=== PATIENT | female | born 1935 | race Caucasian/White ===

== ENCOUNTER 2020-03-31 11:36 | Emergency (ER) | payer OTHER ==
[~2020-03-31] VITALS: Ht 152.4 cm; Wt 70.3 kg
--- NOTE | 2020-03-31 11:40 | NUR ---
PATIENT TO ER #3 DUST SAMPLER, SAO2, ABP
[2020-03-31 11:53] VITALS: BP_SYST 122
--- NOTE | 2020-03-31 12:05 | NUR ---
PT RECEIVED AND IN ROOM, ON MONITOR, RESP UNLABORED, SKIN WARM AND DRY. CLEAR MENTATION AND SPEECH. C/O RT KNEE PAIN. WAS SENT HERE BY HER PMD. DENIES HEAD INJURY OR LOC.
--- NOTE | 2020-03-31 12:24 | NUR ---
SENT TO X-RAY. PT CALM, ALERT, GOOD SPIRITS
--- NOTE | 2020-03-31 12:41 | NUR ---
BACK FROM X-RAY. PT RESTING EASY,NO DISTRESS
--- NOTE | 2020-03-31 13:40 | NUR ---
CT HIP IN PROGRESS
[2020-03-31] MEDS ORDERED: LEVO75CA2 PO (13:41)
[2020-03-31] MEDS ORDERED: MAGN400T39 PO (13:41)
[2020-03-31] MEDS ORDERED: DOCU-144 PO (13:41)
[2020-03-31] MEDS ORDERED: HYDR-1189 PO (13:41)
[2020-03-31] MEDS ORDERED: NITR0.4T47 SL (13:41)
[2020-03-31] MEDS ORDERED: ALLO300T2 PO (13:41)
[2020-03-31] MEDS ORDERED: CALC500T87 PO (13:41)
[2020-03-31] MEDS ORDERED: INSU100V9 SUBQ (13:41)
[2020-03-31] MEDS ORDERED: MELA3CAP2 PO (13:41)
[2020-03-31] MEDS ORDERED: METO25TA6 PO (13:41)
[2020-03-31] MEDS ORDERED: SSNOVOLOG SUBCUT (13:45)
[2020-03-31] MEDS ORDERED: FOLI0.8T42 PO (13:47)
[2020-03-31] MEDS ORDERED: COU2 PO (13:47)
--- NOTE | 2020-03-31 14:27 | NUR ---
ALERT, CALM, RESP UNLABORED, DENIES CP/SOB
--- NOTE | 2020-03-31 17:21 | NUR ---
Patient given written and verbal discharge instructions and verbalizes understanding. ER MD discussed with patient the results and treatment provided. Patient in stable condition. ID arm band removed. Opportunity for questions provided and answered. Medication side effect fact sheet provided. emt to [facility]
[2020-03-31 17:25] VITALS: BP_SYST 130
== END 2020-03-31 17:25 | disposition home or self-care (01) ==
LOC: SED 11:36
DX: S80.01XA Contusion of right knee, initial encounter (principal); S00.93XA Contusion of unspecified part of head, initial encounter; G31.89 Other specified degenerative diseases of nervous system; Z79.4 Long term (current) use of insulin; Z79.899 Other long term (current) drug therapy; W22.8XXA Striking against or struck by other objects, initial encounter; Y93.89 Activity, other specified; Y92.89 Other specified places as the place of occurrence of the external cause; Y99.8 Other external cause status
CPT/HCPCS: 70450-TC; 73502; 73560-TC; 73700-TC; 82962; 99285

== ENCOUNTER 2023-05-03 23:39 | Emergency (ER) | payer OTHER, MEDICAID ==
[~2023-05-03] VITALS: Ht 149.9 cm; Wt 68.0 kg
[2023-05-03 23:39] VITALS: BP_SYST 118
[~2023-05-03 23:39] MED LIST: ALLO300T2 PO; CALC500T87 PO; DOCU-144 PO; FOLI0.8T42 PO; HYDR-3919 PO; INSU100V9 SUBQ; LEVO75CA2 PO; MAGN400T39 PO; MELA3CAP2 PO; METO25TA6 PO; NITR0.4T47 SL; SSNOVOLOG SUBCUT
--- NOTE | 2023-05-03 23:39 | NUR ---
Triaged and placed patient to ER bed 7 for evaluation. Report given to MONI NEGRON for continuity of care. Bed placed in lowest position with side rails up. Instructed to notify ED staff for any changes in condition or worsening of symptoms while waiting to be seen by a provider. Patient verbalized understanding.
--- NOTE | 2023-05-04 00:10 | NUR ---
ER at bedside examining patient.
[2023-05-04 00:36] LABS: BASOPHILS % (AUTO) 0.7 % (0.0-2.0); EOSINOPHILS # (AUTO) 0.1 K/uL (0.0-0.4); EOSINOPHILS % (AUTO) 2.1 % (0.0-4.0); HEMATOCRIT 28.5 % (36-48); LYMPHOCYTES # (AUTO) 1.1 K/uL (1.0-5.5); LYMPHOCYTES % (AUTO) 17.5 % (20.5-51.5); MEAN CORPUSCULAR HEMOGLOBIN 30 pg (27-31); MEAN CORPUSCULAR HGB CONC 32 % (32-36); MEAN CORPUSCULAR VOLUME 96 fL (79.0-98.0); MONOCYTES # (AUTO) 0.8 K/uL (0.0-1.0); MONOCYTES % (AUTO) 12.4 % (1.7-9.3); NEUTROPHILS # (AUTO) 4.4 K/uL (1.8-7.7); NEUTROPHILS % (AUTO) 67.3 % (40.0-70.0); PLATELET COUNT (AUTO) 155 K/uL (130-430); RED BLOOD CELL COUNT(AUTO) 2.97 MIL/uL (4.2-6.2); RED CELL DISTRIBUTION WIDTH 22.7 % (9.0-15.0); WHITE BLOOD COUNT (AUTO) 6.5 K/uL (4.8-10.8)
--- NOTE | 2023-05-04 00:39 | NUR ---
# 22 gauge angiocath placed to LAC. Use of asceptic technique. Opsite placed over site. Blood return noted. Blood for lab drawn from site. Flushed with 10 cc of normal saline. No evidence of infiltration noted. Patient tolerated well.
--- NOTE | 2023-05-04 00:43 | NUR ---
PT TO CT
[2023-05-04 00:52] LABS: ANION GAP 4 (5-15); CALCIUM 9.3 mg/dL (8.4-11.0); CHLORIDE 98 mmol/L (98-107); CREATININE 1.91 mg/dL (0.55-1.30); GLUCOSE 127 mg/dL (70-99); UREA NITROGEN, BLOOD 61 mg/dL (8-21)
--- NOTE | 2023-05-04 00:53 | NUR ---
PT BACK FROM CT
[2023-05-04 00:56] LABS: ALANINE AMINOTRANSFERASE 14 U/L (12-78); ALBUMIN 3.5 g/dL (3.4-4.8); ASPARTATE AMINOTRANSFERASE 18 U/L (10-37); LIPASE 76 U/L (73-393); TOTAL BILIRUBIN 0.5 mg/dL (0.0-1.0)
[2023-05-04] MEDS ORDERED: MORPHINE 4 MG INJ. 4 MG/ML VIAL IVP ONE ×2 (01:00→02:45)
--- NOTE | 2023-05-04 01:05 | NUR ---
CHANGED PT DIAPER PT SOILED SELF. NAD EVEN UNLABORED RR. VSS
[2023-05-04 02:23] LABS: BILIRUBIN,URINE NEGATIVE (NEGATIVE); CLARITY/URINE CLEAR (CLEAR); COLOR,URINE YELLOW (YELLOW); GLUCOSE,URINE NEGATIVE (NEGATIVE); KETONES,URINE NEGATIVE (NEGATIVE); LEUKOCYTE ESTERASE ,URINE NEGATIVE (NEGATIVE); NITRITE, URINE NEGATIVE (NEGATIVE); PH,URINE 7.5 (5.0-8.0); PROTEIN URINE NEGATIVE (NEGATIVE); UROBILINOGEN,URINE 0.2 (0.2-1.0)
[2023-05-04 02:28] LABS: BLOOD, URINE TRACE (NEGATIVE)
[2023-05-04 02:47] LABS: BACTERIA,URINE RARE /HPF (None Seen); WBC,URINE 0-3 /HPF (0-3)
--- NOTE | 2023-05-04 04:21 | NUR ---
Note padmini in ED - 05/04/23 at 0423 by [email or web address] pt iv site came out, started new site, pt c/o left shoulder pain, will make md aware. back in bed safety rails up, fluids started again, connected to continous monitoring.
--- NOTE | 2023-05-04 04:22 | NUR ---
Note undone in [facility] - 05/04/23 at 042 by [email or web address] # 20 gauge angiocath placed to lfa. Use of asceptic technique. Opsite placed over site. Blood return noted. Blood for lab drawn from site. Flushed with 10 cc of normal saline. No evidence of infiltration noted. Patient tolerated well. Addendum: 05/04/23 at 0422 by [email or web address] Amendment undone in [facility] - 05/04/23 at 042 by [email or web address] NO BLOOD WAS DRAWN FOR LABS
--- NOTE | 2023-05-04 04:45 | NUR ---
pt appears sleeping, eyes closed, vss nad even unlabored breathing connected to continous vs monitor safety rails in place.
--- NOTE | 2023-05-04 06:25 | NUR ---
CHANGED PT DIAPER PT SOILED SELF. NAD EVEN UNLABORED RR. VSS CONNECTED TO CONTINOUS MONITORING. NC REMOVED DUE TO PT REQUEST.
--- NOTE | 2023-05-04 06:57 | NUR ---
pt appears sleeping, eyes closed, vss nad even unlabored breathing connected to continous vs monitor safety rails in place.
[2023-05-04 07:51] VITALS: BP_SYST 104
--- NOTE | 2023-05-04 07:51 | NUR ---
REPORT RECEIVED FROM JAMIL MONTENEGRO FOR CONTINUITY OF CARE. PATIENT IN STABLE CONDITION.
--- NOTE | 2023-05-04 08:37 | NUR ---
Report given to JAMIL Ybarra at [facility] for continuity of care. Patient in stable condition. No distress noted. ETA transport 12 pm
[2023-05-04] MEDS ORDERED: HYDROcodone/ACETAMIN 7.5-325 MG TAB PO ONE (12:00)
--- NOTE | 2023-05-04 13:12 | NUR ---
Patient given written and verbal discharge instructions and verbalizes understanding. ER MD discussed with patient the results and treatment provided. Patient in stable condition. ID arm band removed. IV catheter removed intact and dressing applied, no active bleeding. Patient educated on pain management and to follow up with PMD. Pain Scale . Opportunity for questions provided and answered. Medication side effect fact sheet provided.
== END 2023-05-04 13:12 | disposition home or self-care (01) ==
LOC: SED 23:39
DX: R10.13 Epigastric pain (principal); R19.7 Diarrhea, unspecified; E11.9 Type 2 diabetes mellitus without complications; I10 Essential (primary) hypertension; Z88.1 Allergy status to other antibiotic agents; Z79.899 Other long term (current) drug therapy
CPT/HCPCS: 36415; 71045; 76376; 80053; 81000; 83690; 85025; 93005; 99285; J2270

== ENCOUNTER 2024-01-10 21:38 | Inpatient (IN) | payer MEDICAID, OTHER ==
[~2024-01-10] VITALS: Ht 160 cm; Wt 78.0 kg
[2024-01-10 21:42] VITALS: BP_SYST 104; PULSE 93; RESP 18; TEMP 98; O2SAT 94
[2024-01-10] MEDS: HYDROcodone/ACETAMIN 5-325 MG TAB (NORCO/ VICODIN) PO ONE (22:35)
[2024-01-10] MEDS: NS 500 ML IV ONE (22:48)
[2024-01-10 22:50] LABS: BASOPHILS % (AUTO) 0.7 % (0.0-2.0); EOSINOPHILS # (AUTO) 0.2 K/uL (0.0-0.4); EOSINOPHILS % (AUTO) 3.5 % (0.0-4.0); HEMATOCRIT 26.2 % (36-48); HEMOGLOBIN 8.7 g/dL (12.0-16.0); LYMPHOCYTES # (AUTO) 0.9 K/uL (1.0-5.5); LYMPHOCYTES % (AUTO) 15.7 % (20.5-51.5); MEAN CORPUSCULAR HEMOGLOBIN 34 pg (27-31); MEAN CORPUSCULAR HGB CONC 33 % (32-36); MEAN CORPUSCULAR VOLUME 103 fL (79.0-98.0); MONOCYTES # (AUTO) 0.7 K/uL (0.0-1.0); MONOCYTES % (AUTO) 12.4 % (1.7-9.3); NEUTROPHILS % (AUTO) 67.7 % (40.0-70.0); PLATELET COUNT (AUTO) 135 K/uL (130-430); RED BLOOD CELL COUNT(AUTO) 2.54 MIL/uL (4.2-6.2); RED CELL DISTRIBUTION WIDTH 17.2 % (9.0-15.0); WHITE BLOOD COUNT (AUTO) 5.9 K/uL (4.8-10.8)
[2024-01-10 22:56] LABS: ANION GAP 7 (5-15); CALCIUM 8.9 mg/dL (8.4-11.0); CARBON DIOXIDE 28 mmol/L (23-29); CHLORIDE 101 mmol/L (98-107); CREATININE 3.42 mg/dL (0.55-1.30); GLUCOSE 107 mg/dL (74-106); POTASSIUM 5.4 mmol/L (3.5-5.1); SODIUM SERUM 136 mmol/L (136-145); UREA NITROGEN, BLOOD 60 mg/dL (8-21)
[2024-01-10 22:58] LABS: INR 1.3 (0.8-1.2); PROTHROMBIN TIME 13.3 SECS (9.5-12.5)
[2024-01-10 23:03] LABS: ALANINE AMINOTRANSFERASE 7 U/L (12-78); ALBUMIN 2.8 g/dL (3.4-4.8); ASPARTATE AMINOTRANSFERASE 11 U/L (10-37); BILIRUBIN,DIRECT 0.2 mg/dL (0.0-0.3); LIPASE 20 U/L (16-77); TOTAL BILIRUBIN 0.4 mg/dL (0.0-1.0); TOTAL PROTEIN, SERUM 6.5 g/dL (6.4-8.3)
[2024-01-10] MEDS: ONDANSETRON HCL 4 MG/2 ML VIAL IVP ONE (23:22)
[2024-01-10] MEDS: FAMOTIDINE PF 20 MG/2 ML VIAL IVP ONE (23:27)
[2024-01-11] MEDS: NITROGLYCERIN 0.4 MG TAB.SUBL SL ONE (00:15)
[2024-01-11] MEDS: FUROSEMIDE 40 MG/4 ML VIAL IVP ONE (00:20)
[2024-01-11] MEDS ORDERED: APIX2.5T PO (01:14)
[2024-01-11] MEDS ORDERED: ALLO100T PO (01:14)
[2024-01-11] MEDS ORDERED: BISA10SU77 RC (01:24)
[2024-01-11] MEDS ORDERED: ASCO500T20 PO (01:24)
[2024-01-11] MEDS ORDERED: OSCD500 PO (01:24)
[2024-01-11] MEDS ORDERED: FURO-150 PO (01:24)
[2024-01-11] MEDS ORDERED: FER300L PO (01:24)
[2024-01-11] MEDS ORDERED: WHEA98PO PO (01:24)
[2024-01-11] MEDS ORDERED: INSU100V11 SQ (01:24)
[2024-01-11] MEDS ORDERED: PRO40 PO (01:24)
[2024-01-11] MEDS ORDERED: CYAN100T44 PO (01:24)
[2024-01-11 01:27] LABS: BILIRUBIN,URINE NEGATIVE (NEGATIVE); BLOOD, URINE 3+ (NEGATIVE); CLARITY/URINE CLEAR (CLEAR); COLOR,URINE YELLOW (YELLOW); GLUCOSE,URINE NEGATIVE (NEGATIVE); KETONES,URINE NEGATIVE (NEGATIVE); LEUKOCYTE ESTERASE ,URINE 2+ (NEGATIVE); NITRITE, URINE NEGATIVE (NEGATIVE); PROTEIN URINE TRACE (NEGATIVE); UROBILINOGEN,URINE 0.2 (0.2-1.0)
[2024-01-11 01:39] LABS: BACTERIA,URINE RARE /HPF (None Seen)
[2024-01-11 02:15] VITALS: BP_SYST 107; PULSE 91; RESP 18; TEMP 97.4
[2024-01-11] MEDS: cefTRIAXone 1 GM IVPB PREMIX 50 ML IV ONE ×2 (02:38)
[2024-01-11 08:04] VITALS: BP_SYST 120; PULSE 102; RESP 18; TEMP 96.5; O2SAT 95
[2024-01-11] MEDS ORDERED: NITROGLYCERIN 0.4 MG TAB.SUBL SL PRN (08:15)
[2024-01-11] MEDS ORDERED: INSULIN LISPRO SLIDING SCALE 100 UNITS/ML, 3 ML VIAL (humaLOG) SUBCUT PRN (08:45)
[2024-01-11] MEDS: CYANOCOBALAMIN (VITAMIN B-12) 1,000 MCG TABLET PO SCH (09:00)
[2024-01-11] MEDS: ALLOPURINOL 100 MG TABLET (ZYLOPRIM) PO SCH (09:00)
[2024-01-11] MEDS: CALCIUM 500 MG/TAB PO SCH (09:00)
[2024-01-11] MEDS: METOPROLOL TARTRATE 25 MG TABLET PO SCH (09:00)
[2024-01-11] MEDS: DOCUSATE SODIUM 100 MG CAPSULE PO SCH (09:00)
[2024-01-11] MEDS: APIXABAN 2.5 MG TABLET PO SCH (09:00)
[2024-01-11] MEDS: NEPHROVITE, (FOLIC ACID/VITAMIN B COMP W-C 1 TAB) PO SCH (09:00)
[2024-01-11] MEDS: FUROSEMIDE 20 MG/2 ML VIAL IVP SCH (09:00)
[2024-01-11] MEDS: LEVOTHYROXINE SODIUM 0.075 MG TABLET PO SCH (09:00)
[2024-01-11] MEDS ORDERED: INSULIN GLARGINE 100 UNITS/ML, 10 ML VIAL SQ SCH (09:00)
[2024-01-11] MEDS: PANTOPRAZOLE SODIUM 40 MG TAB PO SCH (09:00)
[2024-01-11] MEDS ORDERED: BISACODYL 10 MG/SUPPOSITORY RC PRN (10:00)
[2024-01-11] MEDS ORDERED: NALOXONE HCL 0.4 MG/ML AMP (NARCAN) IVP PRN (10:00)
[2024-01-11] MEDS ORDERED: INSULIN REGULAR, HUMAN 100 UNITS/ML, 3 ML VIAL (humuLIN R) SUBCUT PRN (10:15)
[2024-01-11] MEDS ORDERED: ONDANSETRON HCL 4 MG/2 ML VIAL IVP PRN (10:15)
[2024-01-11] MEDS: HYDROcodone/ACETAMIN 5-325 MG TAB (NORCO/ VICODIN) PO PRN (11:07)
[2024-01-11] MEDS: SODIUM POLYSTYRENE SULFONATE 15 GM/60 ML UDBTL PO ONE ×2 (11:07→14:17)
[2024-01-11] MEDS: cefTRIAXone 1 GM in D5W 50 ML IV SCH (11:08)
[2024-01-11 11:17] VITALS: BP_SYST 113; PULSE 103; RESP 17; TEMP 98.6; O2SAT 100
[2024-01-11] MEDS ORDERED: AZITHROMYCIN 500 MG in NS 250 ML IV SCH (12:00)
[2024-01-11] MEDS: CALCIUM CARBONATE/VITAMIN D3 1 TAB TABLET PO SCH (15:00)
[2024-01-11] MEDS: AZITHROMYCIN 500 MG in NS 250 ML IV SCH (15:55)
[2024-01-11 16:26] LABS: BASOPHILS % (AUTO) 0.9 % (0.0-2.0); EOSINOPHILS # (AUTO) 0.1 K/uL (0.0-0.4); HEMATOCRIT 27.7 % (36-48); HEMOGLOBIN 8.9 g/dL (12.0-16.0); LYMPHOCYTES # (AUTO) 0.8 K/uL (1.0-5.5); LYMPHOCYTES % (AUTO) 15.4 % (20.5-51.5); MEAN CORPUSCULAR HEMOGLOBIN 34 pg (27-31); MEAN CORPUSCULAR HGB CONC 32 % (32-36); MEAN CORPUSCULAR VOLUME 105 fL (79.0-98.0); MONOCYTES # (AUTO) 0.5 K/uL (0.0-1.0); MONOCYTES % (AUTO) 10.5 % (1.7-9.3); NEUTROPHILS # (AUTO) 3.5 K/uL (1.8-7.7); NEUTROPHILS % (AUTO) 71.2 % (40.0-70.0); PLATELET COUNT (AUTO) 138 K/uL (130-430); RED BLOOD CELL COUNT(AUTO) 2.64 MIL/uL (4.2-6.2); RED CELL DISTRIBUTION WIDTH 17.7 % (9.0-15.0); WHITE BLOOD COUNT (AUTO) 4.9 K/uL (4.8-10.8)
[2024-01-11 16:35] LABS: ANION GAP 7 (5-15); CARBON DIOXIDE 26 mmol/L (23-29); CHLORIDE 102 mmol/L (98-107); CREATININE 3.52 mg/dL (0.55-1.30); GLUCOSE 173 mg/dL (74-106); POTASSIUM 5.4 mmol/L (3.5-5.1); SODIUM SERUM 135 mmol/L (136-145); UREA NITROGEN, BLOOD 64 mg/dL (8-21)
[2024-01-11 16:39] LABS: INR 1.3 (0.8-1.2); PROTHROMBIN TIME 13.5 SECS (9.5-12.5)
[2024-01-11 16:45] LABS: PHOSPHORUS 5.5 mg/dL (2.7-4.5); URIC ACID 7.3 mg/dL (2.4-7.0)
[2024-01-11 16:50] VITALS: BP_SYST 106; PULSE 98; RESP 19; TEMP 98.4; O2SAT 100
[2024-01-11 20:00] VITALS: BP_SYST 140; PULSE 105; RESP 14; TEMP 97; O2SAT 100
[2024-01-11] MEDS ORDERED: FUROSEMIDE 20 MG TABLET PO SCH (21:00)
[2024-01-11] MEDS: FERROUS SULFATE 325 MG TABLET.DR PO SCH (21:20)
[2024-01-11] MEDS: INSULIN GLARGINE 100 UNITS/ML, 10 ML VIAL SQ SCH (21:24)
[2024-01-12] VITALS: BP_SYST 107; PULSE 78; RESP 16; TEMP 97.2; O2SAT 94
[2024-01-12 05:56] LABS: BASOPHILS # (AUTO) 0.1 K/uL (0.0-0.2); BASOPHILS % (AUTO) 1.1 % (0.0-2.0); EOSINOPHILS # (AUTO) 0.1 K/uL (0.0-0.4); EOSINOPHILS % (AUTO) 1.6 % (0.0-4.0); HEMOGLOBIN 8.4 g/dL (12.0-16.0); LYMPHOCYTES # (AUTO) 0.7 K/uL (1.0-5.5); LYMPHOCYTES % (AUTO) 12.7 % (20.5-51.5); MEAN CORPUSCULAR HEMOGLOBIN 34 pg (27-31); MEAN CORPUSCULAR HGB CONC 32 % (32-36); MEAN CORPUSCULAR VOLUME 105 fL (79.0-98.0); MONOCYTES # (AUTO) 0.8 K/uL (0.0-1.0); MONOCYTES % (AUTO) 14.8 % (1.7-9.3); NEUTROPHILS # (AUTO) 3.9 K/uL (1.8-7.7); NEUTROPHILS % (AUTO) 69.8 % (40.0-70.0); PLATELET COUNT (AUTO) 139 K/uL (130-430); RED CELL DISTRIBUTION WIDTH 17.8 % (9.0-15.0); WHITE BLOOD COUNT (AUTO) 5.5 K/uL (4.8-10.8)
[2024-01-12 06:33] LABS: TOTAL IRON BIND. CAPACITY 296 ug/dL (250-450)
[2024-01-12 06:41] LABS: ALANINE AMINOTRANSFERASE 9 U/L (12-78); ALBUMIN 2.6 g/dL (3.4-4.8); ANION GAP 9 (5-15); ASPARTATE AMINOTRANSFERASE 13 U/L (10-37); CALCIUM 8.8 mg/dL (8.4-11.0); CARBON DIOXIDE 25 mmol/L (23-29); CHLORIDE 103 mmol/L (98-107); CHOLESTEROL 91 mg/dL (<200); CREATININE 3.61 mg/dL (0.55-1.30); GLUCOSE 136 mg/dL (74-106); HDL CHOLESTEROL 33 mg/dL (>55); POTASSIUM 5.3 mmol/L (3.5-5.1); SODIUM SERUM 137 mmol/L (136-145); TOTAL BILIRUBIN 0.3 mg/dL (0.0-1.0); TOTAL PROTEIN, SERUM 6.2 g/dL (6.4-8.3); TRIGLYCERIDES 54 mg/dL (30-150); UREA NITROGEN, BLOOD 64 mg/dL (8-21)
[2024-01-12] MEDS: LEVOTHYROXINE SODIUM 0.075 MG TABLET PO SCH (06:42)
[2024-01-12 07:51] VITALS: BP_SYST 112; PULSE 101; RESP 16; TEMP 97; O2SAT 98
[2024-01-12 07:53] LABS: HEMATOCRIT 26.2 % (36-48)
[2024-01-12] MEDS ORDERED: ALLOPURINOL 300 MG TABLET (ZYLOPRIM) PO SCH (09:00)
[2024-01-12] MEDS: ASCORBIC ACID 500 MG TABLET PO SCH (09:00)
[2024-01-12 10:00] VITALS: O2SAT 100
[2024-01-12 11:32] VITALS: BP_SYST 99; PULSE 94; RESP 16; TEMP 97.9; O2SAT 100
[2024-01-12] MEDS ORDERED: FURO40TA5 PO (15:25)
[2024-01-12] MEDS ORDERED: CALC-17 PO (15:25)
[2024-01-12] MEDS ORDERED: CYAN500T9 PO (15:25)
[2024-01-12] MEDS ORDERED: ACET325T53 PO ×2 (15:25)
[2024-01-12] MEDS ORDERED: FERR-69 PO (15:25)
[2024-01-12] MEDS ORDERED: PROP10DR4 OP (15:25)
[2024-01-12] MEDS ORDERED: SODI126M NS (15:25)
[2024-01-12 16:40] VITALS: BP_SYST 110; PULSE 96; RESP 17; TEMP 97.5; O2SAT 96
[2024-01-12 20:30] VITALS: PULSE 90; RESP 18; TEMP 97.5; O2SAT 100
[2024-01-12] MEDS: AZITHROMYCIN 500 MG in NS 250 ML IV SCH (22:39)
[2024-01-13 04:19] LABS: BASOPHILS % (AUTO) 0.9 % (0.0-2.0); EOSINOPHILS # (AUTO) 0.1 K/uL (0.0-0.4); HEMATOCRIT 25.1 % (36-48); HEMOGLOBIN 8.1 g/dL (12.0-16.0); LYMPHOCYTES # (AUTO) 0.7 K/uL (1.0-5.5); LYMPHOCYTES % (AUTO) 14.3 % (20.5-51.5); MEAN CORPUSCULAR HEMOGLOBIN 34 pg (27-31); MEAN CORPUSCULAR HGB CONC 32 % (32-36); MEAN CORPUSCULAR VOLUME 105 fL (79.0-98.0); MONOCYTES # (AUTO) 0.8 K/uL (0.0-1.0); MONOCYTES % (AUTO) 15.1 % (1.7-9.3); NEUTROPHILS # (AUTO) 3.5 K/uL (1.8-7.7); NEUTROPHILS % (AUTO) 67.7 % (40.0-70.0); PLATELET COUNT (AUTO) 142 K/uL (130-430); RED BLOOD CELL COUNT(AUTO) 2.39 MIL/uL (4.2-6.2); RED CELL DISTRIBUTION WIDTH 17.7 % (9.0-15.0); WHITE BLOOD COUNT (AUTO) 5.1 K/uL (4.8-10.8)
[2024-01-13 04:39] LABS: ALANINE AMINOTRANSFERASE 6 U/L (12-78); ALBUMIN 2.6 g/dL (3.4-4.8); ANION GAP 6 (5-15); ASPARTATE AMINOTRANSFERASE 11 U/L (10-37); CALCIUM 8.9 mg/dL (8.4-11.0); CARBON DIOXIDE 27 mmol/L (23-29); CHLORIDE 104 mmol/L (98-107); GLUCOSE 78 mg/dL (74-106); POTASSIUM 5.3 mmol/L (3.5-5.1); SODIUM SERUM 137 mmol/L (136-145); TOTAL BILIRUBIN 0.3 mg/dL (0.0-1.0); TOTAL PROTEIN, SERUM 6.2 g/dL (6.4-8.3); UREA NITROGEN, BLOOD 70 mg/dL (8-21)
[2024-01-13 07:58] VITALS: BP_SYST 119; PULSE 93; RESP 18; TEMP 97.6; O2SAT 96
[2024-01-13 08:10] VITALS: O2SAT 99
[2024-01-13] MEDS: SODIUM POLYSTYRENE SULFONATE 15 GM/60 ML UDBTL PO ONE (10:16)
[2024-01-13] MEDS: DEXTROSE 50% JECT 50 ML DISP.SYRIN IVP PRN (11:22)
[2024-01-13 11:49] VITALS: BP_SYST 131; PULSE 93; RESP 15; TEMP 97.7; O2SAT 93
[2024-01-13 15:03] VITALS: BP_SYST 107; PULSE 94; RESP 16; TEMP 97.2; O2SAT 98
[2024-01-13 20:15] VITALS: BP_SYST 115; PULSE 82; RESP 18; TEMP 97.6; O2SAT 100
[2024-01-13] MEDS ORDERED: HEPARIN SODIUM,PORCINE 5,000 UNITS/ML VIAL SUBCUT ONE (22:00)
[2024-01-13] MEDS: HEPARIN SODIUM,PORCINE 5,000 UNITS/ML VIAL IVP ONE (23:11)
[2024-01-14 00:40] VITALS: BP_SYST 95; PULSE 87; RESP 18; TEMP 97.3; O2SAT 100
[2024-01-14 07:51] VITALS: BP_SYST 105; PULSE 98; RESP 18; TEMP 97.4; O2SAT 95
[2024-01-14 08:03] VITALS: O2SAT 94
[2024-01-14 12:20] VITALS: BP_SYST 106; PULSE 69; RESP 20; TEMP 97.3; O2SAT 100
[2024-01-14 16:29] VITALS: BP_SYST 90; PULSE 83; RESP 18; TEMP 97.2; O2SAT 100
[2024-01-14 18:37] LABS: BASOPHILS % (AUTO) 0.6 % (0.0-2.0); EOSINOPHILS # (AUTO) 0.1 K/uL (0.0-0.4); EOSINOPHILS % (AUTO) 1.9 % (0.0-4.0); HEMATOCRIT 27.3 % (36-48); HEMOGLOBIN 8.8 g/dL (12.0-16.0); LYMPHOCYTES # (AUTO) 0.7 K/uL (1.0-5.5); LYMPHOCYTES % (AUTO) 11.1 % (20.5-51.5); MEAN CORPUSCULAR HEMOGLOBIN 34 pg (27-31); MEAN CORPUSCULAR HGB CONC 32 % (32-36); MEAN CORPUSCULAR VOLUME 105 fL (79.0-98.0); MONOCYTES # (AUTO) 0.9 K/uL (0.0-1.0); MONOCYTES % (AUTO) 14.7 % (1.7-9.3); NEUTROPHILS # (AUTO) 4.5 K/uL (1.8-7.7); NEUTROPHILS % (AUTO) 71.7 % (40.0-70.0); PLATELET COUNT (AUTO) 122 K/uL (130-430); RED BLOOD CELL COUNT(AUTO) 2.61 MIL/uL (4.2-6.2); RED CELL DISTRIBUTION WIDTH 18.3 % (9.0-15.0); WHITE BLOOD COUNT (AUTO) 6.3 K/uL (4.8-10.8)
[2024-01-14 19:00] VITALS: BP_SYST 102; PULSE 82; RESP 16; TEMP 97.4; O2SAT 96
[2024-01-14 19:04] LABS: ANISOCYTOSIS 1+; POLYCHROMASIA 1+
[2024-01-14 19:15] LABS: ANION GAP 5 (5-15); CALCIUM 8.8 mg/dL (8.4-11.0); CARBON DIOXIDE 30 mmol/L (23-29); CHLORIDE 102 mmol/L (98-107); CREATININE 3.19 mg/dL (0.55-1.30); GLUCOSE 103 mg/dL (74-106); POTASSIUM 4.3 mmol/L (3.5-5.1); SODIUM SERUM 137 mmol/L (136-145); UREA NITROGEN, BLOOD 50 mg/dL (8-21)
[2024-01-15 00:24] VITALS: BP_SYST 101; PULSE 84; RESP 18; TEMP 97.6; O2SAT 100
[2024-01-15 04:45] LABS: BASOPHILS % (AUTO) 0.6 % (0.0-2.0); EOSINOPHILS % (AUTO) 0.6 % (0.0-4.0); HEMATOCRIT 26.7 % (36-48); HEMOGLOBIN 8.7 g/dL (12.0-16.0); LYMPHOCYTES # (AUTO) 0.7 K/uL (1.0-5.5); LYMPHOCYTES % (AUTO) 10.7 % (20.5-51.5); MEAN CORPUSCULAR HEMOGLOBIN 34 pg (27-31); MEAN CORPUSCULAR HGB CONC 33 % (32-36); MEAN CORPUSCULAR VOLUME 105 fL (79.0-98.0); MONOCYTES # (AUTO) 0.8 K/uL (0.0-1.0); MONOCYTES % (AUTO) 12.8 % (1.7-9.3); NEUTROPHILS # (AUTO) 4.6 K/uL (1.8-7.7); NEUTROPHILS % (AUTO) 75.3 % (40.0-70.0); PLATELET COUNT (AUTO) 128 K/uL (130-430); RED BLOOD CELL COUNT(AUTO) 2.55 MIL/uL (4.2-6.2); RED CELL DISTRIBUTION WIDTH 17.5 % (9.0-15.0); WHITE BLOOD COUNT (AUTO) 6.1 K/uL (4.8-10.8)
[2024-01-15 05:06] LABS: ALANINE AMINOTRANSFERASE 8 U/L (12-78); ALBUMIN 2.8 g/dL (3.4-4.8); ANION GAP 12 (5-15); ASPARTATE AMINOTRANSFERASE 19 U/L (10-37); CALCIUM 9.1 mg/dL (8.4-11.0); CARBON DIOXIDE 24 mmol/L (23-29); CHLORIDE 102 mmol/L (98-107); CREATININE 3.39 mg/dL (0.55-1.30); GLUCOSE 90 mg/dL (74-106); POTASSIUM 4.6 mmol/L (3.5-5.1); SODIUM SERUM 138 mmol/L (136-145); TOTAL BILIRUBIN 0.5 mg/dL (0.0-1.0); TOTAL PROTEIN, SERUM 6.4 g/dL (6.4-8.3); UREA NITROGEN, BLOOD 52 mg/dL (8-21)
[2024-01-15 07:43] VITALS: BP_SYST 112; PULSE 93; RESP 20; TEMP 97.1; O2SAT 90
[2024-01-15 08:16] VITALS: O2SAT 96
[2024-01-15 12:00] VITALS: BP_SYST 108; PULSE 90; RESP 20; TEMP 97.4; O2SAT 95
[2024-01-15 12:06] LABS: HEPATITIS C VIRUS AB Non Reactive (Non Reactive)
[2024-01-15 16:00] VITALS: BP_SYST 129; PULSE 65; RESP 20; TEMP 97.8; O2SAT 97
[2024-01-15 20:05] VITALS: BP_SYST 131; PULSE 96; RESP 19; TEMP 97.1; O2SAT 100
[2024-01-16 00:20] VITALS: BP_SYST 102; PULSE 82; RESP 22; TEMP 97.6; O2SAT 100
[2024-01-16] MEDS: LORazepam 2 MG/ML VIAL IVP PRN (02:46)
[2024-01-16 03:06] LABS: HEPATITIS A AB, IgM Negative (Negative); HEPATITIS B CORE AB, IgM Negative (Negative); HEPATITIS B SURFACE AG Negative (Negative)
[2024-01-16 04:47] LABS: BASOPHILS % (AUTO) 0.5 % (0.0-2.0); EOSINOPHILS # (AUTO) 0.1 K/uL (0.0-0.4); EOSINOPHILS % (AUTO) 1.4 % (0.0-4.0); HEMATOCRIT 26.2 % (36-48); HEMOGLOBIN 8.5 g/dL (12.0-16.0); LYMPHOCYTES # (AUTO) 0.7 K/uL (1.0-5.5); LYMPHOCYTES % (AUTO) 11.2 % (20.5-51.5); MEAN CORPUSCULAR HEMOGLOBIN 34 pg (27-31); MEAN CORPUSCULAR HGB CONC 32 % (32-36); MEAN CORPUSCULAR VOLUME 105 fL (79.0-98.0); MONOCYTES # (AUTO) 0.9 K/uL (0.0-1.0); MONOCYTES % (AUTO) 15.7 % (1.7-9.3); NEUTROPHILS # (AUTO) 4.3 K/uL (1.8-7.7); NEUTROPHILS % (AUTO) 71.2 % (40.0-70.0); PLATELET COUNT (AUTO) 133 K/uL (130-430); RED BLOOD CELL COUNT(AUTO) 2.49 MIL/uL (4.2-6.2); WHITE BLOOD COUNT (AUTO) 6.1 K/uL (4.8-10.8)
[2024-01-16 05:01] LABS: ALANINE AMINOTRANSFERASE 10 U/L (12-78); ALBUMIN 2.8 g/dL (3.4-4.8); ANION GAP 10 (5-15); ASPARTATE AMINOTRANSFERASE 23 U/L (10-37); CALCIUM 8.9 mg/dL (8.4-11.0); CARBON DIOXIDE 28 mmol/L (23-29); CHLORIDE 101 mmol/L (98-107); GLUCOSE 94 mg/dL (74-106); SODIUM SERUM 139 mmol/L (136-145); TOTAL BILIRUBIN 0.5 mg/dL (0.0-1.0); TOTAL PROTEIN, SERUM 6.4 g/dL (6.4-8.3); UREA NITROGEN, BLOOD 56 mg/dL (8-21)
[2024-01-16 08:00] VITALS: BP_SYST 98; PULSE 67; RESP 20; O2SAT 98; O2SAT 99
[2024-01-16 11:57] VITALS: BP_SYST 115; PULSE 85; RESP 18; TEMP 98.4; O2SAT 100
[2024-01-16 12:06] LABS: QUANTIFERON TB GOLD Negative (Negative)
== END 2024-01-16 18:10 | disposition left against medical advice (07) | DRG 291 ==
LOC: SED 21:38 → STU 01-11 00:49
PROVIDERS: ADMIT Internal Medicine; ATTEND Internal Medicine
PROC: 02HV33Z Insertion of Infusion Device into Superior Vena Cava, Percutaneous Approach (ICD-10-PCS; 2024-01-13)
PROC: B548ZZA Ultrasonography of Superior Vena Cava, Guidance (ICD-10-PCS; 2024-01-13)
PROC: 5A1D70Z Performance of Urinary Filtration, Intermittent, Less than 6 Hours Per Day (ICD-10-PCS; principal; 2024-01-14)
DX: I13.0 Hypertensive heart and chronic kidney disease with heart failure and stage 1 through stage 4 chronic kidney disease, or unspecified chronic kidney disease (principal); I50.43 Acute on chronic combined systolic (congestive) and diastolic (congestive) heart failure; J18.9 Pneumonia, unspecified organism; J96.01 Acute respiratory failure with hypoxia; N17.9 Acute kidney failure, unspecified; J90 Pleural effusion, not elsewhere classified; I48.20 Chronic atrial fibrillation, unspecified; N39.0 Urinary tract infection, site not specified; N18.4 Chronic kidney disease, stage 4 (severe); Z66 Do not resuscitate; R13.10 Dysphagia, unspecified; E78.5 Hyperlipidemia, unspecified; E11.22 Type 2 diabetes mellitus with diabetic chronic kidney disease; E03.9 Hypothyroidism, unspecified; E87.5 Hyperkalemia; I25.10 Atherosclerotic heart disease of native coronary artery without angina pectoris; K74.60 Unspecified cirrhosis of liver; D64.9 Anemia, unspecified; G89.4 Chronic pain syndrome; I87.8 Other specified disorders of veins; I07.1 Rheumatic tricuspid insufficiency; R07.89 Other chest pain; K57.90 Diverticulosis of intestine, part unspecified, without perforation or abscess without bleeding; Z90.49 Acquired absence of other specified parts of digestive tract; Z74.01 Bed confinement status; Z95.1 Presence of aortocoronary bypass graft; Z88.8 Allergy status to other drugs, medicaments and biological substances; I35.0 Nonrheumatic aortic (valve) stenosis
CPT/HCPCS: 36415; 71045; 71250-TC; 76937; 80048; 80053; 80061; 80074; 80076; 81000; 81001; 81015; 82140; 82948; 83037; 83540; 83550; 83690; 83880; 84100; 84443; 84484; 84550; 85025; 85610; 85730; 86480; 87081; 87086; 90935; 93005; 93306; 97110-GP; 97530-GP; 99285; G0378; J0456; J0696; J1644; J1815; J1940; J2060; J2405; J3490; J7050; J7060